=== PATIENT | male | born 1990 | race African-American/Black ===

== ENCOUNTER 2018-06-06 17:48 | Observation (INO) | payer OTHER, SELFPAY ==
[2018-06-06 18:36] LABS: Absolute Lymphocytes (CBC) 1.6 K/uL (0.7-4.9); Absolute Neutrophil 9.3 K/uL (1.8-8.0); Basophils % 0.5 % (0-1.3); Eosinophils % 0.5 % (0-4.4); Hematocrit 44.2 % (39.6-49.0); Lymphocytes % 13.1 % (15.3-44.8); MCH 29.1 pg (27.0-35.0); MCV 86.2 fL (80-100); MPV 7.7 fL (7.6-11.3); RBC Red Blood Cell Count 5.13 M/uL (4.33-5.43)
[2018-06-06] MEDS ORDERED: NA CHLORIDE 0.9% 1,000 ML ONE ×4 (18:46→23:31)
[2018-06-06 18:51] LABS: Protime INR 1.13
[2018-06-06 18:56] LABS: Barbiturates NEGATIVE (NEGATIVE); Benzodiazepines NEGATIVE (NEGATIVE); Cocaine NEGATIVE (NEGATIVE); METHAMPHETAM NEGATIVE (NEGATIVE); Methadone NEGATIVE (NEGATIVE); Opiates NEGATIVE (NEGATIVE); Phencyclidine NEGATIVE (NEGATIVE); THC Cannibis NEGATIVE (NEGATIVE)
[2018-06-06 19:20] LABS: ALT/SGPT 29 U/L (12-78); AST/SGOT 37 U/L (15-37); Albumin 4.7 g/dL (3.4-5.0); Alkaline Phosphatase 67 U/L (45-117); BUN Blood Urea Nitrogen 30 mg/dL (7-18); Bicarbonate 25 mmol/L (21-32); Bilirubin Direct 0.4 mg/dL (0-0.2); Bilirubin Total 1.3 mg/dL (0.2-1.0); Glucose Level 95 mg/dL (74-106); Potassium 3.5 mmol/L (3.5-5.1); Protein, Total 8.4 g/dL (6.4-8.2); Sodium Level 140 mmol/L (136-145)
[2018-06-06 19:30] LABS: Urine Blood NEGATIVE (NEG); Urine Glucose NEGATIVE (NEG); Urine Protein NEGATIVE (NEG); Urine Specific Gravity >1.030 (1.005-1.030); Urine pH 5.5 (5.0-7.0)
--- NOTE | 2018-06-06 20:16 | ER ---
Nurse's Notes [facility] Name: Len Cabrera Age: 27 yrs Sex: Male : 1990 Arrival Date: 06/06/2018 Time: 18:02 Bed 7 Private MD: Diagnosis: Acute kidney failure;Unspecified psychosis not due to a substance or known physiological condition Presentation: 06/06 17:46 Presenting complaint: EMS states: pt called 911 to have someone to talk to. On EMS sv arrival pt was found outside of [facility]'s, acting erratic. Denies suicidal and homicidal ideation. BP 135/85 HR-130s. Denies taking drugs. Pt has had no sleep in 2 days[address] [place] [employer] came in with EMS until SAGAR obtained. Transition of care: patient was not received from another setting of care. Onset of symptoms was June 06, 2018. Risk Assessment: Do you want to hurt yourself or someone else? Patient reports no desire to harm self or others. Initial Sepsis Screen: Does the patient meet any 2 criteria? No. Patient's initial sepsis screen is negative. Does the patient have a suspected source of infection? No. Patient's initial sepsis screen is negative. Care prior to arrival: None. 17:46 Method Of Arrival: EMS: [facility] sv 17:46 Acuity: HIPOLITO 2 sv Triage Assessment: 17:46 General: Appears in no apparent distress. slender, well developed, Behavior is sv restless, Pt appears manic and attempt to talk over you.. Pain: Denies pain. EENT: No signs and/or symptoms were reported regarding the EENT system. Neuro: Level of Consciousness is awake, alert, obeys commands, Oriented to person, place, time, situation, Moves all extremities. Full function Gait is steady. Respiratory: Respiratory effort is even, unlabored, Respiratory pattern is regular, symmetrical. Derm: Skin is normal. Historical: - Allergies: 18:09 No Known Allergies; sv - Home Meds: 18:09 None [Active]; sv - PMHx: 18:09 None; sv - PSHx: 18:09 None; sv - Immunization history:: Adult Immunizations up to date. - Social history:: Smoking status: unknown. - Ebola Screening: : No symptoms or risks identified at this time. - Family history:: not pertinent. Screenin:10 Abuse screen: Denies threats or abuse. Denies injuries from another. Nutritional sv screening: No deficits noted. Tuberculosis screening: No symptoms or risk factors identified. Fall Risk None identified. Assessment: 18:12 Reassessment: SAGAR brought to the ER. sv 18:42 General: Appears well developed, well nourished, Behavior is agitated, anxious, la1 restless. Pain: Denies pain. Neuro: Level of Consciousness is awake, alert, obeys commands, Oriented to person, place, time, situation, Gait is steady, Speech is normal, Facial symmetry appears normal, Pupils are PERRLA. Cardiovascular: Capillary refill < 3 seconds Patient's skin is warm and dry. Respiratory: Airway is patent Respiratory effort is even, unlabored, Respiratory pattern is regular, symmetrical. GI: No signs and/or symptoms were reported involving the gastrointestinal system. : No signs and/or symptoms were reported regarding the genitourinary system. 19:15 Reassessment: Pt standing in door way demanding to know why he has to stay here and la1 when he can go home, pt alert, oriented x4, states "there is nothing wrong with me, this is how I am all the time and I need to get to work" pt educated on need for evaluation by [facility]. Instructed to remain in roon. 19:46 Reassessment: Pt walked out of room, states "Im going to the bathroom" Pt instructed to la1 return to room, ignores instructions and walks out of ER. [facility] notified. 20:15 Reassessment: Security States Pt ripped IV out prior to leaving, pt seen to be la1 sprinting across the street. [facility] notified. 21:21 Reassessment: pt returned to ED by [facility] pt's mother was called and a message left for bb her. 21:50 Neuro: Level of Consciousness is awake, alert, obeys commands, Oriented to person, la1 place, time, situation, Gait is steady, Speech is normal, Facial symmetry appears normal, Pupils are PERRLA, Pt mood elevated, states he will stay now and let us help him, belongings removed. . 23:21 Reassessment: Patient appears in no apparent distress at this time. No changes from la1 previously documented assessment. Patient and/or family updated on plan of care and expected duration. Pain level reassessed. Patient is alert, oriented x 3, equal unlabored respirations, skin warm/dry/pink. 06/07 09:30 Reassessment: pt d/c'd by , awaiting pt family to arrive to take pt home. pt sg stated understanding, pt reports still feeling drowsy at this time. pt aa\\T\\ox3, resp even and unlabored, skin WNL. 12:00 Reassessment: Patient appears in no apparent distress at this time. Patient is alert, sg oriented x 3, equal unlabored respirations, skin warm/dry/pink. pt mother is on the way to speak with patient at this time. 12:10 Reassessment: pt updated on POC and discharge, pt stated understanding. awaiting pt iw mother for transport to home. 12:55 Reassessment: Patient appears in no apparent distress at this time. Patient is alert, sg oriented x 3, equal unlabored respirations, skin warm/dry/pink. Contacted Mira with [facility], Mira reports the pt and pt family will be in contact on Saturday for arranging out patient treatment. pt mother updated on POC. 13:21 Reassessment: pt updated on POC a prescription for depakote has been called into [facility], pt reports understanding at this time. pt mother here at facility for pt DC to home. Psych: 06/06 18:42 Subjective: Patient's mood is elevated, Delusions are denied, Hallucinations are la1 denied. Objective: Patient is aggressive, irritable, restless, Speech is rapid, pressured, Affect is appropriate. Interventions: Urine collected and sent for urine drug test. Safety Checks: Door is open. Pt denies substance abuse. Commitment: Patient will be an involuntary commitment. 06/07 07:09 Suicide Risk Assessment: Sad Person Scale: Sex of patient: Male: Score 1 point. Age of sg patient: Score 1 point if patient 15-34. Depression: Score 0 point if signs of depression are not present. Previous Attempt: Score 0 point if patient has not previously attempted suicide. Substance Abuse: Score 1 point if patient abuses alcohol or drugs. Rational Thinking: Score 0 point if patient has rational thinking. Organized Plan: Score 0 if patient did not have an organized plan in place. Relationship: Score 1 point if patient is , , , or for a single male TOTAL POINTS: If total points are 3-4, proposed clinical action is close follow-up/consider hospitalization. Consultation: psych wireworker supervisor to come to dept to evaluate pt. Vital Signs: 06/06 18:09 BP 119 / 80; Pulse 100; Resp 22; Pulse Ox 99% ; Weight 75.75 kg; Height 6 ft. 1 in. sv (185.42 cm); Pain 0/10; 21:41 BP 118 / 85; Pulse 94; Resp 16; Temp 98.2; Pulse Ox 98% on R/A; la1 22:41 BP 110 / 62 Supine; Pulse 98 MON; Resp 16 S; Pulse Ox 96% on R/A; ds4 23:21 BP 120 / 84; Pulse 74; Resp 16; Pulse Ox 98% on R/A; la1 18:09 Body Mass Index 22.03 (75.75 kg, 185.42 cm) sv ED Course: 18:02 Patient arrived in ED. rg4 18:03 Dima Jimenez MD is Attending Physician. khalida 18:05 Zee Tapia, RN is Primary Nurse. sv 18:08 Triage completed. sv 18:10 Arm band placed on. sv 18:10 Patient has correct armband on for positive identification. Bed in low position. Head sv of bed elevated. 18:24 Inserted saline lock: 20 gauge in left antecubital area, using aseptic technique. Blood la1 collected. 19:26 Dima Welch PA is PHCP. cp 19:45 Primary Nurse role handed off by Zee Tapia RN 21:30 Safety checks: Door open/sign placed on door: yes. Family/friend present: no. Sitter ds4 present: Yes. 21:33 Rashel Wise, RN is Primary Nurse. la1 21:[address] 21:45 Safety checks: Door open/sign placed on door: yes. Family/friend present: no. Sitter ds4 present: Yes. 21:51 CT Head Brain wo Cont In Process Unspecified. EDMS 22:00 Safety checks: Door open/sign placed on door: yes. Family/friend present: no. Sitter ds4 present: Yes. 22:11 Ckmb Sent. ds4 22:11 CK Sent. ds4 22:11 Hepatic Function Sent. ds4 22:11 ETOH Level Sent. ds4 22:11 CBC with Diff Sent. ds4 22:11 Basic Metabolic Panel Sent. ds4 22:11 Acetaminophen Sent. ds4 22:27 Notified ED physician of a critical lab result(s). CK of 1735 Dr Riggs notified. bb 23:05 Attending Physician role handed off by Dima Jimenez MD wa 23:05 Yayo Riggs MD is Attending Physician. wa 23:08 Justa Gordon MD is Hospitalizing Provider. cp 06/07 00:19 No provider procedures requiring assistance completed. Patient admitted, IV remains in la1 place. 06:42 called the [facility] as requested by Dr. Gordon/ spoke with Sarah she will page eb out a screener to come evaluate the patient. 07:15 Mira from [facility] here to screen the patient. eb 08:38 [facility] called they have declined the patient in transfer due to the patient not eb meeting requirement for the facility. 09:33 Primary Nurse role handed off by Rashel Wise RN 09:33 Jaden Carson, RN is Primary Nurse. sg Administered Medications: 06/06 18:41 Drug: NS 0.9% 1000 ml Route: IV; Rate: 1 bolus; Site: left antecubital; la1 20:11 Follow up: IV Intake: 1000ml la1 20:16 Follow up: IV Status: Completed infusion la1 20:11 Not Given (Patient Refused): Ativan 1 mg IVP once la1 20:11 Not Given (Patient Refused): Geodon 20 mg IM once la1 20:11 Not Given (Patient Refused): Ativan 1 mg IVP once la1 21:34 Drug: Ativan 1 mg Route: IVP; Site: left antecubital; la1 23:21 Follow up: Response: No adverse reaction; Marked relief of symptoms la1 21:34 Drug: Geodon 20 mg Route: IM; Site: right gluteus; la1 23:22 Follow up: Response: No adverse reaction; Marked relief of symptoms la1 21:40 Drug: NS 0.9% 1000 ml Route: IV; Rate: 1 bolus; Site: left antecubital; la1 23:16 Follow up: IV Status: Completed infusion la1 22:03 Drug: NS 0.9% 1000 ml Route: IV; Rate: 1 bolus; Site: left antecubital; la1 23:16 Follow up: IV Status: Completed infusion la1 23:27 Drug: NS 0.9% 1000 ml Route: IV; Rate: 125 ml/hr; Site: left antecubital; la1 23:27 Follow up: IV Status: Infusion continued upon admission la1 Intake: 20:11 IV: 1000ml; Total: 1000ml. la1 Outcome: 20:16 Patient left the ED. la1 23:09 Decision to Hospitalize by Provider. lilliana 06/07 00:19 Admitted to ER Hold. Please see [facility] for further documentation. la1 Condition: stable Instructed on the need for admit. 13:45 Patient left the ED. sg Signatures: Dispatcher [employer] EDMS Zee Tapia RN RN sv Gay, Steven, RN RN sg Anderson, Corey, MD MD cha Hagler, Ervin eh Ballard, Brenda, RN RN bb Williams, Irene, RN RN iw Swanson, Donovan ds4 Rashel Wise RN RN la1 Page, Corey, PA PA cp Garcia, Rubi rg4 Yayo Riggs MD MD wa Botello, Elizabeth eb Corrections: (The following items were deleted from the chart) 06/06 18:11 17:46 Presenting complaint: EMS states: pt called 911 to have someone to talk to. On EMS arrival pt was found outside of [facility]'s, acting erratic. Denies suicidal and homicidal ideation. BP 135/85 HR-130s. Denies taking drugs. Pt has had no sleep in 2 days. sv
--- NOTE | 2018-06-06 20:16 | EDPHYS ---
Physician Documentation [facility] Name: Len Cabrera Age: 27 yrs Sex: Male : 1990 Arrival Date: 06/06/2018 Time: 18:02 Bed 7 Private MD: ED Physician Yayo Riggs HPI: 06/06 18:32 This 27 yrs old Black Male presents to ER via EMS with complaints of Psych Problem. khalida 18:32 The patient presents to the emergency department with anxiety. Onset: The khalida symptoms/episode began/occurred at an unknown time. Past psychiatric history: unk. Associated signs and symptoms: The patient has no apparent associated signs or symptoms. Severity of symptoms: At their worst the symptoms were moderate in the emergency department the symptoms are unchanged. The patient has not experienced similar symptoms in the past, It is unknown whether or not the patient has had similar symptoms in the past. Historical: - Allergies: 18:09 No Known Allergies; sv - Home Meds: 18:09 None [Active]; sv - PMHx: 18:09 None; sv - PSHx: 18:09 None; sv - Immunization history:: Adult Immunizations up to date. - Social history:: Smoking status: unknown. - Ebola Screening: : No symptoms or risks identified at this time. - Family history:: not pertinent. ROS: 18:32 Constitutional: Negative for fever, chills, and weight loss, Eyes: Negative for injury, khalida pain, redness, and discharge, ENT: Negative for injury, pain, and discharge, Neck: Negative for injury, pain, and swelling, Cardiovascular: Negative for chest pain, palpitations, and edema, Respiratory: Negative for shortness of breath, cough, wheezing, and pleuritic chest pain, Abdomen/GI: Negative for abdominal pain, nausea, vomiting, diarrhea, and constipation, Back: Negative for injury and pain, : Negative for injury, bleeding, discharge, and swelling, MS/Extremity: Negative for injury and deformity, Skin: Negative for injury, rash, and discoloration, Neuro: Negative for headache, weakness, numbness, tingling, and seizure, Allergy/Immunology: Negative for hives, rash, and allergies, Endocrine: Negative for neck swelling, polydipsia, polyuria, polyphagia, and marked weight changes, Hematologic/Lymphatic: Negative for swollen nodes, abnormal bleeding, and unusual bruising. 18:32 Psych: Positive for delusional behavior. Exam: 18:32 Constitutional: This is a well developed, well nourished patient who is awake, alert, khalida and in no acute distress. Head/Face: Normocephalic, atraumatic. Eyes: Pupils equal round and reactive to light, extra-ocular motions intact. Lids and lashes normal. Conjunctiva and sclera are non-icteric and not injected. Cornea within normal limits. Periorbital areas with no swelling, redness, or edema. ENT: Nares patent. No nasal discharge, no septal abnormalities noted. Tympanic membranes are normal and external auditory canals are clear. Oropharynx with no redness, swelling, or masses, exudates, or evidence of obstruction, uvula midline. Mucous membranes moist. Neck: Trachea midline, no thyromegaly or masses palpated, and no cervical lymphadenopathy. Supple, full range of motion without nuchal rigidity, or vertebral point tenderness. No Meningismus. Chest/axilla: Normal chest wall appearance and motion. Nontender with no deformity. No lesions are appreciated. Cardiovascular: Regular rate and rhythm with a normal S1 and S2. No gallops, murmurs, or rubs. Normal PMI, no JVD. No pulse deficits. Respiratory: Lungs have equal breath sounds bilaterally, clear to auscultation and percussion. No rales, rhonchi or wheezes noted. No increased work of breathing, no retractions or nasal flaring. Abdomen/GI: Soft, non-tender, with normal bowel sounds. No distension or tympany. No guarding or rebound. No evidence of tenderness throughout. Back: No spinal tenderness. No costovertebral tenderness. Full range of motion. Male : Normal genitalia with no discharge or lesions. Skin: Warm, dry with normal turgor. Normal color with no rashes, no lesions, and no evidence of cellulitis. MS/ Extremity: Pulses equal, no cyanosis. Neurovascular intact. Full, normal range of motion. 18:32 Neuro: Orientation: to person, place, Not oriented to time, situation, Mentation: animated, Memory: unable to test, Cranial nerves: grossly normal, is grossly normal based on the patient's age, no acute changes, Cerebellar function: is grossly normal, is grossly normal based on the patient's age, no acute changes, Motor: is normal, moves all fours, strength is normal, Gait: is steady, appropriate for age, seizure activity. Vital Signs: 18:09 BP 119 / 80; Pulse 100; Resp 22; Pulse Ox 99% ; Weight 75.75 kg; Height 6 ft. 1 in. sv (185.42 cm); Pain 0/10; 21:41 BP 118 / 85; Pulse 94; Resp 16; Temp 98.2; Pulse Ox 98% on R/A; la1 22:41 BP 110 / 62 Supine; Pulse 98 MON; Resp 16 S; Pulse Ox 96% on R/A; ds4 23:21 BP 120 / 84; Pulse 74; Resp 16; Pulse Ox 98% on R/A; la1 18:09 Body Mass Index 22.03 (75.75 kg, 185.42 cm) sv MDM: 18:03 Patient medically screened. [facility] 18:35 Data reviewed: vital signs, nurses notes, EMS record, lab test result(s), EKG. [facility] 06/06 18:03 Order name: Acetaminophen; Complete Time: 19:36 [facility] 06/06 18:03 Order name: Basic Metabolic Panel; Complete Time: 19:36 [facility] 06/06 19:36 Interpretation: Normal except: BUN 30; CRE 2.30; GFR 41. 06/06 18:03 Order name: CBC with Diff; Complete Time: 19:36 [facility] 06/06 19:37 Interpretation: Normal except: WBC 12.0; CASSY% 77.9; LYM% 13.1; NEUT A 9.3. cp 06/06 18:03 Order name: ETOH Level; Complete Time: 19:36 [facility] 06/06 18:03 Order name: Hepatic Function; Complete Time: 19:36 [facility] 06/06 18:03 Order name: PT-INR; Complete Time: 19:00 [facility] 06/06 18:03 Order name: Ptt, Activated; Complete Time: 19:00 [facility] 06/06 18:03 Order name: Salicylate; Complete Time: 19:36 [facility] 06/06 18:03 Order name: Urine Drug Screen; Complete Time: 19:00 [facility] 06/06 18:04 Order name: TSH; Complete Time: 19:36 [facility] 06/06 18:43 Order name: Urine Dipstick--Ancillary (enter results); Complete Time: 19:36 06/06 21:36 Order name: Urine Drug Screen 06/06 21:36 Order name: Salicylate; Complete Time: 22:46 06/06 21:36 Order name: PT-INR; Complete Time: 22:46 06/06 21:36 Order name: Ptt, Activated; Complete Time: 22:46 06/06 21:36 Order name: Hepatic Function; Complete Time: 22:46 06/06 21:36 Order name: ETOH Level; Complete Time: 22:46 06/06 21:36 Order name: CBC with Diff; Complete Time: 22:46 06/06 21:36 Order name: Basic Metabolic Panel; Complete Time: 22:46 06/06 22:46 Interpretation: Normal except: GLUC 69; BUN 31; CRE 1.90; GFR 51. 06/06 21:36 Order name: Acetaminophen; Complete Time: 22:46 06/06 21:36 Order name: CK; Complete Time: 22:46 06/06 22:46 Interpretation: Abnormal: CPK 1735. 06/06 21:36 Order name: Ckmb; Complete Time: 22:46 06/06 21:36 Order name: CT Head Brain wo Cont; Complete Time: 23:04 06/06 23:04 Interpretation: Report reviewed. 06/07 07:40 Order name: CBC with Automated Diff [facility] 06/07 08:15 Order name: Comprehensive Metabolic Panel [facility] 06/07 09:12 Order name: Creatine Phosphokinase [facility] 06/06 18:03 Order name: EKG; Complete Time: 18:23 [facility] 06/06 18:03 Order name: EKG - Nurse/Tech; Complete Time: 18:04 [facility] 06/06 18:03 Order name: IV Saline Lock; Complete Time: 18:24 [facility] 06/06 18:03 Order name: Labs collected and sent; Complete Time: 18:24 [facility] 06/06 18:03 Order name: Urine Dipstick-Ancillary (obtain specimen); Complete Time: 18:38 [facility] 06/06 21:36 Order name: Urine Test (obtain specimen); Complete Time: 21:42 06/06 21:36 Order name: Urine Dipstick-Ancillary (obtain specimen); Complete Time: 21:42 06/06 21:36 Order name: Labs collected and sent; Complete Time: 21:40 cp 06/06 21:36 Order name: IV Saline Lock; Complete Time: 21:40 cp 06/06 21:36 Order name: EKG - Nurse/Tech; Complete Time: 21:40 cp 06/06 21:36 Order name: EKG; Complete Time: 21:36 cp 06/06 21:36 Order name: Diet Regular; Complete Time: 21:37 cp Administered Medications: 18:41 Drug: NS 0.9% 1000 ml Route: IV; Rate: 1 bolus; Site: left antecubital; la1 20:11 Follow up: IV Intake: 1000ml la1 20:16 Follow up: IV Status: Completed infusion la1 20:11 Not Given (Patient Refused): Ativan 1 mg IVP once la1 20:11 Not Given (Patient Refused): Geodon 20 mg IM once la1 20:11 Not Given (Patient Refused): Ativan 1 mg IVP once la1 21:34 Drug: Ativan 1 mg Route: IVP; Site: left antecubital; la1 23:21 Follow up: Response: No adverse reaction; Marked relief of symptoms la1 21:34 Drug: Geodon 20 mg Route: IM; Site: right gluteus; la1 23:22 Follow up: Response: No adverse reaction; Marked relief of symptoms la1 21:40 Drug: NS 0.9% 1000 ml Route: IV; Rate: 1 bolus; Site: left antecubital; la1 23:16 Follow up: IV Status: Completed infusion la1 22:03 Drug: NS 0.9% 1000 ml Route: IV; Rate: 1 bolus; Site: left antecubital; la1 23:16 Follow up: IV Status: Completed infusion la1 23:27 Drug: NS 0.9% 1000 ml Route: IV; Rate: 125 ml/hr; Site: left antecubital; la1 23:27 Follow up: IV Status: Infusion continued upon admission la1 Disposition: 06/06/18 23:09 Hospitalization ordered by Justa Gordon for Observation. Preliminary diagnosis are Acute kidney failure, Unspecified psychosis not due to a substance or known physiological condition. - Bed requested for [facility] ER HOLD. - Status is Observation. sg - Condition is Stable. - Problem is new. - Symptoms have improved. UTI on Admission? No Signatures: Dispatcher [employer] EDMA Zee Tapia, RN Jaden Mujica RN RN sg Anderson, Corey, MD MD cha Solis, Maria ms Tonya, Rashel, RN RN la1 Dima Welch PA PA cp Corrections: (The following items were deleted from the chart) 20:16 20:15 06/06/2018 20:15 Patient left the facility after being seen by provider. Reason la1 stated they are leaving due to other. Condition is Undetermined. la1 21:37 20:16 06/06/2018 20:15 Patient left the facility after being seen by provider. Reason cp stated they are leaving due to other. Condition is Undetermined. la1 23:54 23:09 Hospitalization Ordered by Justa Gordon MD for Observation. Preliminary ms diagnosis is Acute kidney failure; Unspecified psychosis not due to a substance or known physiological condition. Bed requested for Telemetry/MedSurg (observation). Status is Observation. Condition is Stable. Problem is new. Symptoms have improved. UTI on Admission? No. cp 23:54 23:54 06/06/2018 23:09 Hospitalization Ordered by Justa Gordon MD for Observation. ms Preliminary diagnosis is Acute kidney failure; Unspecified psychosis not due to a substance or known physiological condition. Bed requested for [facility] ER HOLD. Status is Observation. Condition is Stable. Problem is new. Symptoms have improved. UTI on Admission? No. ms 06/07 13:45 06/06 23:54 06/06/2018 23:09 Hospitalization Ordered by Justa Gordon MD for sg Observation. Preliminary diagnosis is Acute kidney failure; Unspecified psychosis not due to a substance or known physiological condition. Bed requested for [facility] ER HOLD. Status is Observation. Condition is Stable. Problem is new. Symptoms have improved. UTI on Admission? No. ms
[2018-06-06] MEDS ORDERED: ZIPRASIDONE MESYLA 20 MG/VIAL IM ONE (21:32)
[2018-06-06] MEDS ORDERED: WATER FOR INJ,STERILE 10 ML ONE (21:32)
[2018-06-06] MEDS ORDERED: LORazepam 2 MG/ML VIAL ONE (21:33)
[2018-06-06 22:02] LABS: Absolute Lymphocytes (CBC) 2.3 K/uL (0.7-4.9); Absolute Monocytes 1.2 K/uL (0.1-1.3); Absolute Neutrophil 6.9 K/uL (1.8-8.0); Basophils % 0.3 % (0-1.3); Eosinophils % 0.4 % (0-4.4); Hematocrit 41.6 % (39.6-49.0); Lymphocytes % 22.2 % (15.3-44.8); MCH 29.1 pg (27.0-35.0); MCV 85.4 fL (80-100); Monocytes % 11.6 % (3.3-12.3); RBC Red Blood Cell Count 4.87 M/uL (4.33-5.43)
[2018-06-06 22:06] LABS: Protime INR 1.16
[2018-06-06 22:25] LABS: ALT/SGPT 28 U/L (12-78); AST/SGOT 37 U/L (15-37); Albumin 4.2 g/dL (3.4-5.0); Alkaline Phosphatase 58 U/L (45-117); BUN Blood Urea Nitrogen 31 mg/dL (7-18); Bicarbonate 24 mmol/L (21-32); Bilirubin Direct 0.3 mg/dL (0-0.2); Bilirubin Total 1.2 mg/dL (0.2-1.0); CKMB Creatine Kinase MB 8.4 ng/mL (0.3-3.6); Glucose Level 69 mg/dL (74-106); Potassium 3.7 mmol/L (3.5-5.1); Protein, Total 7.6 g/dL (6.4-8.2); Sodium Level 138 mmol/L (136-145)
[2018-06-06 22:26] LABS: Creatine Phosphokinase 1735 U/L (39-308)
--- NOTE | 2018-06-06 22:57 | RAD REPORT ---
EXAM DESCRIPTION: CT - Head Brain Wo Cont - 06/06/2018 9:51 pm CLINICAL HISTORY: Transient alteration of awareness COMPARISON: None. TECHNIQUE: Axial 5 mm thick images of the head were obtained without IV contrast. All CT scans are performed using dose optimization technique as appropriate and may include automated exposure control or mA/KV adjustment according to patient size. FINDINGS: No intracranial hemorrhage, mass, edema or shift of mid-line structures. No acute infarcti on changes seen. No abnormal extra-axial fluid collections. Ventricles are normal. Mastoid air cells and visualized portions of the paranasal sinuses are clear. No acute bony findings. IMPRESSION: Negative non-contrast CT head examination.
[2018-06-07 00:18] VITALS: BMI 23.1
[2018-06-07] MEDS ORDERED: MORPHINE 4 MG/ML SYR IV PRN (01:18)
[2018-06-07] MEDS ORDERED: ACETAMINOPHEN 500 MG TAB PO PRN (01:18)
[2018-06-07] MEDS ORDERED: ONDANSETRON 4 MG/2 ML VIAL IV PRN (01:18)
[2018-06-07] MEDS ORDERED: NA CHLORIDE 0.9% 1,000 ML IV SCH ×2 (02:00→08:00)
[2018-06-07 04:03] VITALS: BP 107/62; TEMP 98.7
[2018-06-07] MEDS ORDERED: NA CHLORIDE 0.9% 1,000 ML ONE ×2 (04:28→08:09)
--- NOTE | 2018-06-07 07:10 | EKG ---
Test Date: 2018-06-06 Test Time: 21:43:03 Loop Machine Operator: JOHN MEASUREMENT RESULTS: Intervals: Rate: 94 OR: 150 QRSD: 88 QT: 350 QTc: 437 [place]: P: 79 OR: 150 QRS: 85 T: 63 INTERPRETIVE STATEMENTS: Normal sinus rhythm Normal ECG Compared to ECG 06/06/2018 18:30:22 Sinus tachycardia no longer present Atrial abnormality no longer present Right-axis deviation no longer present Electronically Signed On 06-07-18 07:09:38 ACREAGE REPORTER by aLlo Mohr
--- NOTE | 2018-06-07 07:11 | EKG ---
Test Date: 2018-06-06 Test Time: 18:30:22 Warehouseman: RUBY MEASUREMENT RESULTS: Intervals: Rate: 115 [place]: 138 QRSD: 86 QT: 324 QTc: 448 [place]: P: 83 [place]: 138 QRS: 97 T: 60 INTERPRETIVE STATEMENTS: Sinus tachycardia Right atrial enlargement Rightward axis Pulmonary disease pattern Abnormal ECG No previous ECG available for comparison Electronically Signed On 06-07-18 07:10:19 PURCHASING SUPERVISOR by Lalo Mohr
[2018-06-07 07:38] LABS: Absolute Lymphocytes (CBC) 2.3 K/uL (0.7-4.9); Absolute Monocytes 0.8 K/uL (0.1-1.3); Absolute Neutrophil 3.1 K/uL (1.8-8.0); Basophils % 0.5 % (0-1.3); Eosinophils % 2.2 % (0-4.4); Hematocrit 39.9 % (39.6-49.0); Lymphocytes % 36.1 % (15.3-44.8); MCH 29.1 pg (27.0-35.0); MCV 85.7 fL (80-100); MPV 7.7 fL (7.6-11.3); Monocytes % 12.5 % (3.3-12.3); RBC Red Blood Cell Count 4.66 M/uL (4.33-5.43)
[2018-06-07 07:56] LABS: Albumin 3.4 g/dL (3.4-5.0); Bilirubin Total 1.1 mg/dL (0.2-1.0); Potassium 3.6 mmol/L (3.5-5.1); Protein, Total 6.2 g/dL (6.4-8.2)
[2018-06-07] MEDS ORDERED: INFLUENZA VACCINE (for 3y+) 0.5 ML DOSE IMVAC ONE (08:00)
[2018-06-07] MEDS ORDERED: DIVALPROEX DR 500MG TAB PO SCH (08:00)
[2018-06-07] MEDS ORDERED: DIVALPROEX DR 250 MG TAB PO ONE (08:09)
--- NOTE | 2018-06-07 08:14 | P.HP ---
Certification for Inpatient Patient admitted to: Observation With expected LOS: <2 Midnights Patient will require the following post-hospital care: None Practitioner: I am a practitioner with admitting privileges, knowledge of patient current condition, hospital course, and medical plan of care. Services: Services provided to patient in accordance with Admission requirements found in Title 42 Section 412.3 of the Code of Federal Regulations Patient History Date of Service: 06/07/18 Reason for admission: Patient with acute manic episode History of Present Illness: Patient is a 27-year-old gentleman who apparently called EMS to have someone to talk to read wound the stressors in his life. He apparently was not getting along with his mother and she kicked him out of the house. He was pretty much homeless and was parked out of [employer]. He states that he recently got a job at [employer]. However, he is also states that he has been studying for application for graduate school. He apparently got his bachelor's in biology and chemistry at [employer]. He worked for a short time but then he was having difficulty with implement removed and with his mom. They will not getting along and she asked him to leave. He has been out on his own living out of his car for the last 2 days. He started behaving erratically as described above knee was brought into the emergency room for further evaluation. He was found to be severely dehydrated with elevated CPK. He had not slept in 48 hr. He was not very manic was pressured speech. He was given some medication to help him relax. When I interviewed him he was still sleepy and try to get off the medication. He did answer all my questions appropriately and was cognizant of what had been going on in his life and wanting to do better. Will observe him and get mental health and mental retardation to evaluate him for close outpatient follow-up. Allergies No Known Allergies Allergy (Unverified 06/07/18 00:07) Home Medications: NK [No Home Meds] 06/07/18 - Past Medical/Surgical History Diabetic: No Past Medical History: Patient denies medical history Past Surgical History: Patient denies surgical history - Family History Father Family History: Reviewed- Non-Contributory - Social History Smoking Status: Never smoker CD- Drugs: No Caffeine use: Yes Place of Residence: [facility] Review of Systems 10-point ROS is otherwise unremarkable Physical Examination - Vital Signs Temperature: 98.7 F Blood Pressure: 107/62 Pulse: 67 Respirations: 16 Pulse Ox (%): 98 - Physical Exam General: Alert, In no apparent distress, Oriented x3 HEENT: Atraumatic, PERRLA, Mucous membr. moist/pink, EOMI, Sclerae nonicteric Neck: Supple, 2+ carotid pulse no bruit, No LAD, Without JVD or thyroid abnormality Respiratory: Clear to auscultation bilaterally, Normal air movement Cardiovascular: Regular rate/rhythm, Normal S1 S2, No murmurs Gastrointestinal: Normal bowel sounds, Soft and benign, Non-distended, No tenderness Musculoskeletal: No clubbing, No swelling, No tenderness Integumentary: No rashes Neurological: Normal gait, Normal speech, Normal strength at 5/5 x4 extr, Normal tone, Sensation intact, Cranial nerves 3-12 intact, Normal affect Lymphatics: No axilla or inguinal lymphadenopathy - Studies Laboratory Data (last 24 hrs) 06/06/18 21:35: WBC 10.5, Hgb 14.2, Hct 41.6, Plt Count 312 06/06/18 21:35: Sodium 138, Potassium 3.7, BUN 31 H, Creatinine 1.90 H, Glucose 69 L, Total Bilirubin 1.2 H, AST 37, ALT 28, Alkaline Phosphatase 58 06/06/18 21:35: PT 13.7 H, INR 1.16, APTT 28.3 06/06/18 18:20: PT 13.3 H, INR 1.13, APTT 29.7 06/06/18 18:20: WBC 12.0 H, Hgb 14.9, Hct 44.2, Plt Count 333 06/06/18 18:20: Sodium 140, Potassium 3.5, BUN 30 H, Creatinine 2.30 H, Glucose 95, Total Bilirubin 1.3 H, AST 37, ALT 29, Alkaline Phosphatase 67 Assessment & Plan - Problems (Diagnosis) (1) Manic episode, severe with psychotic symptoms Current Visit: Yes Status: Acute (2) [place] (acute kidney injury) Current Visit: Yes Status: Acute (3) Rhabdomyolysis Current Visit: Yes Status: Acute - Plan Plan: 1. Aggressive IV hydration 2. Monitor renal function 3. [facility] evaluation 4. Elevated CPK and T. bilirubin level along with elevated protime 5. Monitor hemodynamics 6. GI and DVT prophylaxis Discharge Plan: Home Plan to discharge in: 48 Hours - Advance Directives Does patient have a Living Will: No Does patient have a Durable POA for Healthcare: No - Code Status/Comfort Care Code Status Assessed: Yes Code Status: Full Code Critical Care: No Time Spent Managing PTS Care (In Minutes): 50
--- NOTE | 2018-06-07 09:00 | P.DS ---
Discharge Date: 06/07/18 Disposition: ROUTINE DISCHARGE Discharge Condition: GOOD Reason for Admission: Patient with acute manic episode Consultations: [facility] - Problems (1) Manic episode, severe with psychotic symptoms Current Visit: Yes Status: Acute (2) [place] (acute kidney injury) Current Visit: Yes Status: Acute (3) Rhabdomyolysis Current Visit: Yes Status: Acute Brief History of Present Illness: Patient is a 27-year-old gentleman who apparently called EMS to have someone to talk to read wound the stressors in his life. He apparently was not getting along with his mother and she kicked him out of the house. He was pretty much homeless and was parked out of [employer]. He states that he recently got a job at [employer]. However, he is also states that he has been studying for application for graduate school. He apparently got his bachelor's in biology and chemistry at [employer]. He worked for a short time but then he was having difficulty with implement removed and with his mom. They will not getting along and she asked him to leave. He has been out on his own living out of his car for the last 2 days. He started behaving erratically as described above knee was brought into the emergency room for further evaluation. He was found to be severely dehydrated with elevated CPK. He had not slept in 48 hr. He was not very manic was pressured speech. He was given some medication to help him relax. When I interviewed him he was still sleepy and try to get off the medication. He did answer all my questions appropriately and was cognizant of what had been going on in his life and wanting to do better. Will observe him and get mental health and mental retardation to evaluate him for close outpatient follow-up. Hospital Course: Patient did well during hospital stay. Patient's CPK and renal function improved. Patient tolerating diet and evaluated by [facility] and they have cleared patient for discharge with close outpatient follow-up. Patient will get started on Depakote twice a day. Patient will follow with PCP of his choice and also [facility] in 1-2 weeks. Patient is clinically stable for discharge home at this time. Vital Signs/Physical Exam: Temp Pulse Resp BP Pulse Ox 98.7 F 67 16 107/62 98 06/07/18 08:16 06/07/18 08:16 06/07/18 08:16 06/07/18 08:16 06/07/18 08:16 General: Alert, In no apparent distress, Oriented x3 Laboratory Data at Discharge: WBC 6.4 K/uL (4.3-10.9) D 06/07/18 07:31 Hgb 13.6 g/dL (13.6-17.9) 06/07/18 07:31 Hct 39.9 % (39.6-49.0) 06/07/18 07:31 Plt Count 274 K/uL (152-406) 06/07/18 07:31 PT 13.7 SECONDS (9.5-12.5) H 06/06/18 21:35 INR 1.16 06/06/18 21:35 APTT 28.3 SECONDS (24.3-36.9) 06/06/18 21:35 Sodium 141 mmol/L (136-145) 06/07/18 07:31 Potassium 3.6 mmol/L (3.5-5.1) 06/07/18 07:31 BUN 25 mg/dL (7-18) H 06/07/18 07:31 Creatinine 1.40 mg/dL (0.55-1.3) H 06/07/18 07:31 Glucose 69 mg/dL (74-106) L 06/07/18 07:31 Total Bilirubin 1.1 mg/dL (0.2-1.0) H 06/07/18 07:31 AST 38 U/L (15-37) H 06/07/18 07:31 ALT 25 U/L (12-78) 06/07/18 07:31 Alkaline Phosphatase 50 U/L (45-117) 06/07/18 07:31 Home Medications: Divalproex Sodium [Depakote] 500 mg PO BID #60 tablet. 06/07/18 New Medications: Divalproex Sodium [Depakote] 500 mg PO BID #60 tablet. Patient Discharge Instructions: OK TO DC IV AND DC HOME. FOLLOW-UP WITH A PRIMARY CARE PROVIDER IN 1-2 WEEKS. RETURN TO THE ER IF symptoms worsen. Follow-up with MR in [address] or TEXT [address] BEYER AT [phone] IF ANY QUESTIONS REGARDING HOSPITAL STAY. PLEASE CALL THE FLOOR AT [phone] IF ANY MEDICATION OR NURSING QUESTIONS. Diet: Regular Activity: Fall precautions Time spent managing pt's care (in minutes): 20
[2018-06-07 13:54] VITALS: O2SAT 98
== END 2018-06-07 09:29 | disposition home or self-care (01) ==
LOC: ER 17:48 → ERHOLD 06-07
PROVIDERS: ADMIT Hospitalist; ATTEND Hospitalist
DX: F30.2 Manic episode, severe with psychotic symptoms (principal); N17.9 Acute kidney failure, unspecified; M62.82 Rhabdomyolysis; Z59.0 Homelessness
CPT/HCPCS: 36415; 70450; 80048; 80053; 80076; 80307; 80320; 80329; 81003; 82550; 82553; 84443; 85025; 85610; 85730; 93005; 96361; 96372; 96374; 99285; G0378; J3486; J7030